=== PATIENT | female | born 1975 | race Caucasian/White ===

== ENCOUNTER 2019-06-14 23:20 | Emergency (ER) | payer MEDICAID ==
[~2019-06-14] VITALS: Ht 157.5 cm; Wt 59.9 kg
[2019-06-14 23:23] VITALS: BP_SYST 117
[2019-06-14] MEDS ORDERED: LORazepam 2 MG/ML VIAL IM ONE (23:45)
[2019-06-15 00:26] VITALS: BP_SYST 117
== END 2019-06-15 00:48 | disposition home or self-care (01) ==
LOC: SED 23:20
DX: F28 Other psychotic disorder not due to a substance or known physiological condition (principal); F15.10 Other stimulant abuse, uncomplicated; F20.9 Schizophrenia, unspecified
CPT/HCPCS: 81025; 96372; 99283; J2060

== ENCOUNTER 2019-06-24 15:58 | Emergency (ER) | payer MEDICAID ==
[~2019-06-24] VITALS: Ht 149.9 cm; Wt 53.5 kg
[2019-06-24 16:11] VITALS: BP_SYST 122
--- NOTE | 2019-06-24 16:33 | NUR ---
Patient to ER bed 03 to gown for evaluation. Side rails up.
--- NOTE | 2019-06-24 16:40 | NUR ---
Pt. brought in BLS via [facility]. She was found in a [employer] parking lot with c/o lower back pain. Pain is 7/10. Pt. has hx of anxiety and schizophrenia. She is ETOH. She is non compliant with her Seroquel. She is A&O x3, skin is dry and intact. No other complaints per pt. or as noted. Will continue to monitor.
--- NOTE | 2019-06-24 16:45 | NUR ---
Dr. Newell at bedside examining pt.
--- NOTE | 2019-06-24 16:55 | NUR ---
Pt. given meds as ordered. Pt. states that she is experiencing anxiety and takes Alprazolam to manage it. Dr. Newell notified and does not want to give any anxiety medications at this time.
[2019-06-24] MEDS ORDERED: BUPRENORPHINE HCL/NALOXONE HCL 2-0.5 MG 1 EACH TAB.SUBL SL ONE (17:00)
--- NOTE | 2019-06-24 17:20 | NUR ---
Road Test given by Vinod, EMT. Pt. has steady gait and is able to ambulate without assitance. Taxi called and ETA is 6:15.
[2019-06-24 18:00] VITALS: BP_SYST 120
--- NOTE | 2019-06-24 18:00 | NUR ---
Patient given written and verbal discharge instructions and verbalizes understanding. ER MD discussed with patient the results and treatment provided. Patient in stable condition. ID arm band removed. Rx of Alprazolam given. Patient educated on pain management and to follow up with PMD. Pain Scale 0/10. Opportunity for questions provided and answered. Medication side effect fact sheet provided.
--- NOTE | 2019-06-24 18:05 | NUR ---
Pt. picked up by [facility] and staff assisted pt. to car to ensure she had a ride. She is being taken to [facility] in [place].
== END 2019-06-24 18:00 | disposition home or self-care (01) ==
LOC: SED 15:58
DX: M54.9 Dorsalgia, unspecified (principal); F20.9 Schizophrenia, unspecified; F41.9 Anxiety disorder, unspecified; F32.9 Major depressive disorder, single episode, unspecified
CPT/HCPCS: 99283

== ENCOUNTER 2019-06-25 04:30 | Emergency (ER) | payer MEDICAID ==
[~2019-06-25] VITALS: Ht 149.9 cm; Wt 53.5 kg
[2019-06-25 04:30] VITALS: BP_SYST 172
--- NOTE | 2019-06-25 04:30 | NUR ---
Patient to ER bed 05 to gown for evaluation. Side rails up. Report given to DUKE Chacko.
--- NOTE | 2019-06-25 04:35 | NUR ---
patient BIB BLS complaining that the "voices won't stop" and she is scared. Patient states she misplaced her seroquel. Patient denies the voices are telling her to harm herself, SI or HI. Patient was discharged on 06/24/2019 at 5:11pm and has drank 3 tall can beers since then. Patient was prescribed alprazolam for her back pain but did not fill her prescription. Patient has a history of schizophrenia, anxiety, chronic neck and back pain. Patient does not have any other medical complaints at this time. Will continue to monitor.
--- NOTE | 2019-06-25 04:35 | NUR ---
Note undone in EDM - 06/25/19 at 0445 by EJ patient BIB BLS complaining that the "voices won't stop" and she is scared. Patient denies the voices are telling her to harm herself, SI or HI. Patient was discharged on 06/24/2019 at 5:11pm and has drank 3 tall can beers since then. Patient was prescribed alprazolam for her back pain but did not fill her prescription. Patient has a history of schizophrenia, anxiety, chronic neck and back pain. Patient does not have any other medical complaints at this time. Will continue to monitor.
--- NOTE | 2019-06-25 04:40 | NUR ---
ER Dr. Allen at bedside examining patient.
[2019-06-25 05:00] LABS: BASOPHILS # (AUTO) 0.1 K/uL (0.0-0.2); BASOPHILS % (AUTO) 0.9 % (0.0-2.0); HEMATOCRIT 30.7 % (36-48); LYMPHOCYTES # (AUTO) 1.2 K/uL (1.0-5.5); LYMPHOCYTES % (AUTO) 17.2 % (20.5-51.5); MEAN CORPUSCULAR HEMOGLOBIN 25 pg (27-31); MEAN CORPUSCULAR HGB CONC 33 % (32-36); MEAN CORPUSCULAR VOLUME 77 fL (79.0-98.0); MONOCYTES # (AUTO) 0.2 K/uL (0.0-1.0); MONOCYTES % (AUTO) 3.4 % (1.7-9.3); NEUTROPHILS # (AUTO) 5.5 K/uL (1.8-7.7); NEUTROPHILS % (AUTO) 78.5 % (40.0-70.0); PLATELET COUNT (AUTO) 375 K/uL (130-430); RED BLOOD CELL COUNT(AUTO) 3.97 MIL/uL (4.2-6.2); RED CELL DISTRIBUTION WIDTH 21.5 % (9.0-15.0)
[2019-06-25 05:06] LABS: BILIRUBIN,URINE 1+ (NEGATIVE); CLARITY/URINE CLEAR (CLEAR); COLOR,URINE YELLOW (YELLOW); GLUCOSE,URINE NEGATIVE (NEGATIVE); KETONES,URINE NEGATIVE (NEGATIVE); LEUKOCYTE ESTERASE ,URINE NEGATIVE (NEGATIVE); NITRITE, URINE NEGATIVE (NEGATIVE); PROTEIN URINE TRACE (NEGATIVE)
[2019-06-25 05:07] LABS: BLOOD, URINE TRACE (NEGATIVE)
[2019-06-25 05:11] LABS: BACTERIA,URINE MANY /HPF (None Seen); WBC,URINE 0-3 /HPF (0-3)
[2019-06-25 05:12] LABS: ANION GAP 9 (5-15); CALCIUM 8.8 mg/dL (8.4-11.0); CHLORIDE 93 mmol/L (98-107); CREATININE 0.65 mg/dL (0.55-1.30); GLUCOSE 108 mg/dL (70-99); POTASSIUM 3.2 mmol/L (3.5-5.1); SODIUM SERUM 130 mmol/L (136-145); UREA NITROGEN, BLOOD 7 mg/dL (8-21)
[2019-06-25] MEDS ORDERED: HALOPERIDOL LACTATE 5 MG/ML VIAL IM ONE (05:15)
[2019-06-25] MEDS ORDERED: NACL 0.9% 1,000 ML IV ONE (05:15)
[2019-06-25 05:16] LABS: BARBITURATE, URINE NEGATIVE (NEG <=200); BENZODIAZEPINE, URINE NEGATIVE (NEG <=150); CANNABINOID, URINE NEGATIVE (NEG <=50); COCAINE, URINE NEGATIVE (NEG <=150); METHAMPHETAMINES SCREEN,URINE NEGATIVE (NEG <=500); OPIATE, URINE NEGATIVE (NEG <=100); PHENCYCLIDINE SCREEN,URINE NEGATIVE (NEG <=25); UR TRICYCLIC ANTIDEPRESSANTS NEGATIVE (NEG <=300); URINE AMPHETAMINE POSITIVE (NEG <=500); URINE METHADONE NEGATIVE (NEG <=200); URINE OXYCODONE SCREEN NEGATIVE (NEG <=100); URINE PROPOXYPHENE SCREEN NEGATIVE (NEG <=300)
--- NOTE | 2019-06-25 05:22 | NUR ---
Patient states she is having a reaction to the haldol, she is now "even more scared". notified.
[2019-06-25 05:24] LABS: ALANINE AMINOTRANSFERASE 69 U/L (12-78); ALBUMIN 3.9 g/dL (3.4-4.8); ALCOHOL, BLOOD 28 mg/dL (<10); ASPARTATE AMINOTRANSFERASE 81 U/L (10-37); GFR AFRICAN AMERICAN 128 mL/min (>90); TOTAL BILIRUBIN 0.7 mg/dL (0.0-1.0)
[2019-06-25 05:25] LABS: ACETAMINOPHEN < 1 ug/mL (1-30); HCG,QUANTITATIVE 3 mIU/ML (0-6)
[2019-06-25] MEDS ORDERED: DIPHENHYDRAMINE INJ 50 MG/ML VIAL IM ONE (05:30)
[2019-06-25] MEDS ORDERED: MAGNESIUM SULFATE 50 ML IV ONE (05:30)
--- NOTE | 2019-06-25 05:36 | NUR ---
Patient receieved benadryl 25mg per MD order. Patient is now sleeping comfortably in bed without any signs of distress. Patients vital signs are stable.
[2019-06-25] MEDS ORDERED: POTASSIUM CHLORIDE 20 MEQ TAB.PRT.SR PO ONE (05:45)
--- NOTE | 2019-06-25 06:30 | NUR ---
Patient is sleeping comfortably in bed. Vital signs stable.
--- NOTE | 2019-06-25 07:09 | NUR ---
Patient urinated in bedpan and on herself. Changed the sheets. Patient is sleeping in bed now.
--- NOTE | 2019-06-25 07:12 | NUR ---
Report given to DUKE Cheney for continuation of care.
--- NOTE | 2019-06-25 07:15 | NUR ---
Patient resting in [facility], A&4 declined breakfast tray.
--- NOTE | 2019-06-25 08:05 | NUR ---
Upon discharge patient states "I dont feel good, I don't want to go home can I talk to the doctor" made Dr. Schwartz aware.
--- NOTE | 2019-06-25 08:07 | NUR ---
ER Dr. Schwartz at bedside discussing discharge with patient.
[2019-06-25] MEDS ORDERED: LORazepam 2 MG/ML VIAL IM ONE (08:15)
--- NOTE | 2019-06-25 08:25 | NUR ---
Transportion by [employer] for PT discharge to home.
[2019-06-25 08:40] VITALS: BP_SYST 148
--- NOTE | 2019-06-25 08:40 | NUR ---
Patient given written and verbal discharge instructions and verbalizes understanding. ER MD discussed with patient the results and treatment provided. Patient in stable condition. ID arm band removed. No Rx given. Patient educated on pain management and to follow up with PMD. Pain Scale 2/10 . Opportunity for questions provided and answered. Medication side effect fact sheet provided.
== END 2019-06-25 08:40 | disposition home or self-care (01) ==
LOC: SED 04:30
DX: F29 Unspecified psychosis not due to a substance or known physiological condition (principal); F15.10 Other stimulant abuse, uncomplicated; F41.9 Anxiety disorder, unspecified; F20.9 Schizophrenia, unspecified; F17.210 Nicotine dependence, cigarettes, uncomplicated; Z71.6 Tobacco abuse counseling
CPT/HCPCS: 36415; 80053; 80307; 81000; 82550; 82553; 84702; 85025; 87086; 93005; 96365; 96366; 96372; 96375; 99284; G0480; G0481; G0482; J1200; J1630; J3475; J7030; J2060